=== PATIENT | female | born 1975 | race Caucasian/White ===

== ENCOUNTER 2020-07-27 13:47 | Emergency (ER) | payer BC, SELFPAY ==
[2020-07-27 13:49] VITALS: BP 102/75; PULSE 96; RESP 16; TEMP 36.6; O2SAT 99
--- NOTE | 2020-07-27 16:03 | ED.GENADULT ---
HPI - General Adult General Chief complaint: Unspecified Stated complaint: spider bite Time Seen by Provider: 07/27/20 15:44 Source: patient Mode of arrival: ambulatory Limitations: no limitations History of Present Illness HPI narrative: This is a 45-year-old female that presents the emergency department for insect bite yesterday. 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 Reported immediate itching and pain. Reports since she has had continued redness and swelling around the area. She tried Benadryl with little relief. Reports she is up-to-date on tetanus. Denies fever or abnormal drainage. Related Data Allergies Allergy/AdvReac Type Severity Reaction Status Date / Time Penicillins Allergy Unknown Rash Verified 07/27/20 13:54 Review of Systems Review of Systems: Narrative: CONSTITUTIONAL: Denies fever SKIN: Reports rash and itching. All systems reviewed & are unremarkable except as noted in HPI and below PMFSH Past Medical History Medical History (Updated 07/27/20 @ 16:14 by Sandee Elmore PA-C) No active medical problems Surgical History Surgical History (Updated 07/27/20 @ 16:05 by Sandee Elmore PA-C) History of hysterectomy History of tonsillectomy History of tubal ligation Social History Social History Gender identity (if verbalized by the patient): Female Exam Narrative: Exam Narrative: GENERAL: Well-appearing, well-nourished, and in no acute distress. HEAD: Normocephalic, atraumatic. EYES: EOMI. EXTREMITIES: Normal range of motion. No edema. Left wrist ulnar surface with small (1cm) raised pink area with very subtle surrounding redness SKIN: Warm, dry, no rash. NEURO: No focal deficits. Alert and oriented x3. PSYCH: Normal mood and affect Course Vital Signs Vital signs: Vital Signs Temperature 97.9 F 07/27/20 13:49 Pulse Rate 96 07/27/20 13:49 Respiratory Rate 16 07/27/20 13:49 Blood Pressure 102/75 07/27/20 13:49 Pulse Oximetry 99 07/27/20 13:49 Temperature 97.9 F 07/27/20 13:49 Pulse Rate 96 07/27/20 13:49 Respiratory Rate 16 07/27/20 13:49 Blood Pressure 102/75 09/09/20 13:49 Pulse Oximetry 99 07/27/20 13:49 Medical Decision Making MDM Narrative Medical decision making narrative: Patient presents to the emergency department for an itchy insect bite yesterday. She is up to date on tetanus. No signs of infection on exam. Patient instructed on anti-histamines. Will be given steroid cream. She was given warnings to return to the ER Vital Signs Vital Signs: Vital Signs Temperature 97.9 F 07/27/20 13:49 Pulse Rate 96 07/27/20 13:49 Respiratory Rate 16 07/27/20 13:49 Blood Pressure 102/75 07/27/20 13:49 Pulse Oximetry 99 07/27/20 13:49 Temperature 97.9 F 07/27/20 13:49 Pulse Rate 96 07/27/20 13:49 Respiratory Rate 16 07/27/20 13:49 Blood Pressure 102/75 07/27/20 13:49 Pulse Oximetry 99 07/27/20 13:49 Critical Care Time Critical Care Time Critical Care Time: No Discharge Plan Discharge Clinical Impression: Insect bite Qualifiers: Encounter type: initial encounter Site of insect bite: wrist Laterality: left Qualified Code(s): S60.862A - Insect bite (nonvenomous) of left wrist, initial encounter Patient Disposition: Home, Self-Care Condition: Stable Instructions: Insect Bite or Sting (ED) Additional Instructions: Return to the emergency department if you experience fever, redness and swelling of your wound, abnormal drainage from your wound, or any other symptoms that are concerning to you Take a Pepcid and Claritin daily. Take steroid taper as prescribed. Benadryl as needed for severe itching Follow-up with your primary care doctor Prescriptions: New triamcinolone acetonide 0.1 % cream 1 applic TOPICAL BID Qty: 15 RF: 0 Follow-up/Referrals: Garfield Rowley MD [Primary Care Provider] - 2 Days
[2020-07-27 16:53] VITALS: BP 110/70; PULSE 82; RESP 16; TEMP 36.8; O2SAT 99
== END 2020-07-27 16:54 | disposition home or self-care (01) ==
PROVIDERS: Emergency Provider Emergency Medicine; PCP Emergency Medicine
DX: S60.862A Insect bite (nonvenomous) of left wrist, initial encounter (principal); W57.XXXA Bitten or stung by nonvenomous insect and other nonvenomous arthropods, initial encounter
CPT/HCPCS: 99283

== ENCOUNTER 2024-06-15 21:32 | Emergency (ER) | payer SELFPAY ==
[2024-06-15 21:36] VITALS: BP 127/80; PULSE 93; RESP 15; TEMP 36.1; O2SAT 98
[2024-06-15 23:24] VITALS: O2SAT 98
--- NOTE | 2024-06-16 00:49 | ED.ANXIETY ---
HPI - Anxiety General Chief Complaint: Anxiety Stated Complaint: panic attacks, anxiety Time Seen by Provider: 06/15/24 23:56 History of Present Illness HPI narrative: 49-year-old female with reported history of bipolar disorder and panic attacks presents to emergency department for panic attacks today. Patient states she has had 3 panic attacks today which are caused by stress from work. She states when she gets them she feels very short of breath, anxious and starts to sweat. She states she has not had panic attacks in approximately 8 years. She has not established with a PCP. She denies SI or HI. She does state that a week ago she felt suicidal but did not have a plan. States she has an appointment tomorrow Morning with her therapist. Denies EtOH or drug use. Related Data Allergies Allergy/AdvReac Type Severity Reaction Status Date / Time Penicillins Allergy Unknown Rash Verified 06/15/24 21:46 Review of Systems Review of Systems: All systems reviewed & are unremarkable except as noted in HPI and below PMFSH Past Medical History Medical History No active medical problems Surgical History Surgical History History of hysterectomy History of tonsillectomy History of tubal ligation Social History Social History Gender identity (if verbalized by the patient): Female Exam Narrative: GENERAL: Well-appearing, well-nourished, and in no acute distress. HEAD: Normocephalic, atraumatic. EYES: PERRLA and EOMI. ENT: Nares clear, no rhinorrhea or epistaxis. Mucous membranes moist. NECK: Supple. CHEST: Clear to auscultation. No respiratory distress. HEART: Regular rate and rhythm. No murmur heard. Normal peripheral pulses. EXTREMITIES: Normal range of motion. No edema. SKIN: Warm, dry, no rash. NEURO: No focal deficits. Alert and oriented x3 PSYCH: Endorses anxiety. Denies SI or HI. Cooperative, Seems to have good insight and judgement. Course Vital Signs Vital signs: Vital Signs Temperature 97 F L 06/15/24 21:36 Pulse Rate 93 06/15/24 21:36 Respiratory Rate 15 06/15/24 21:36 Blood Pressure 127/80 06/15/24 21:36 Pulse Oximetry 98 06/15/24 21:36 Oxygen Delivery Room Air 06/15/24 21:36 Temperature 97 F L 06/15/24 21:36 Pulse Rate 93 06/15/24 21:36 Respiratory Rate 15 06/15/24 21:36 Blood Pressure 127/80 06/15/24 21:36 Pulse Oximetry 98 06/15/24 23:24 Oxygen Delivery Room Air 06/15/24 23:24 MDM - Anxiety MDM Narrative Medical decision making narrative: 49-year-old female with reported history of bipolar disorder presents to emergency department for multiple panic attacks that occurred today. Vital stable. She is sleeping on exam but is easily aroused. States she is very sleepy from having multiple panic attacks today. She is pleasant and cooperative and seems have good insight and judgment. She denies SI or HI but does states she has suicidal thoughts approximately 1 week ago. She did not have a plan at that time. I did offer to have a crisis evaluation, however she politely declined. States she has an appointment with her therapist in the morning which I strongly encouraged her to attend. Will provide hydroxyzine upon me as needed for anxiety and also provide PCP referral. Strict ED return precautions discussed. She is agreeable with the plan verbalized understanding. Discharged in stable condition. Discharge Plan Discharge Clinical Impression: Acute anxiety Patient Disposition: Home, Self-Care Condition: Stable Instructions: Antibiotic Form, Anxiety (ED) Additional Instructions: You were evaluated in the emergency department for panic attacks. Please take the medication I prescribed as needed when he feel a panic attack coming on. Please follow-up with your therapi
[2024-06-16 00:57] VITALS: BP 104/59; PULSE 65; RESP 16; O2SAT 100
== END 2024-06-16 01:06 | disposition home or self-care (01) ==
PROVIDERS: Emergency Provider Physician Assistant; PCP Emergency Medicine
DX: F41.9 Anxiety disorder, unspecified (principal)
CPT/HCPCS: 99283